=== PATIENT | female | born 1945 | race Caucasian/White ===

== ENCOUNTER 2019-12-15 11:10 | Emergency (ER) | payer MEDICARE, OTHER ==
--- NOTE | 2019-12-15 19:17 | RAD ---
RIGHT FOOT 3 VIEWS: Date: 12/15/2019 No acute fracture or dislocation seen. An old, healed fracture involving the distal fifth metatarsal and the proximal phalanx of the great toe are noted along with postsurgical changes here. There are s ome mild degenerative changes in many of the joints of the toes and foot. No bony destructive lesion seen. A calcaneal spur was present. IMPRESSION: Chronic changes, but no acute bony findings. POS: HOME
== END 2019-12-15 12:12 | disposition home or self-care (01) ==
LOC: BURERS 11:10
DX: S93.601A Unspecified sprain of right foot, initial encounter (principal); X50.1XXA Overexertion from prolonged static or awkward postures, initial encounter

== ENCOUNTER 2020-03-16 14:27 | Outpatient (CLI) | payer MEDICARE, OTHER ==
--- NOTE | 2020-03-16 15:49 | RAD ---
LEFT KNEE 03/16/20 Three projections demonstrate no fracture or joint effusion. There is some mild medial joint space na rrowing but not any significant osteophytes. No fracture or area of bony destruction was seen. IMPRESSION: Mild medial joint space narrowing. POS: HOME
== END 2020-03-16 14:28 | disposition home or self-care (01) ==
LOC: BURRAD 14:27
PROVIDERS: ATTEND Family Medicine
DX: M25.562 Pain in left knee (principal); M17.12 Unilateral primary osteoarthritis, left knee

== ENCOUNTER 2020-11-18 09:33 | Emergency (ER) | payer MEDICARE, OTHER ==
[2020-11-18 10:07] LABS: #Monocytes 0.9 thou/uL (0.11-0.59); #Neutrophils 4.8 thou/uL (1.40-6.50); %Basophils 0.5 % (0.0-1.0); %Eosinophils 0.2 % (0.0-10.0); %Monocytes 10.6 % (0.0-10.0); %Neutrophils 54.8 % (42.0-75.0); Mean Corpuscular Hemoglobin 30.3 pg (27.0-31.0); Mean Corpuscular Volume 94.6 fL (78.0-98.0); Mean Platelet Volume 7.1 fL (7.4-10.4); Platelet Count 225 thou/uL (130-400); RBC Distribution Width 12.2 % (11.5-14.5); Red Blood Cell (RBC) Count 4.61 mill/uL (4.20-5.40); White Blood Cell (WBC) Count 8.8 thou/uL (4.8-10.8)
[2020-11-18 10:16] LABS: ALT (SGPT) 47 U/L (8-55); AST (SGOT) 44 U/L (5-34); Albumin 4.1 g/dL (3.4-4.8); Alkaline Phosphatase 81 U/L (40-110); Anion Gap 16 mmol/L (10-20); BUN (Urea Nitrogen) 14 mg/dL (9.8-20.1); Bilirubin, Total 0.4 mg/dL (0.2-1.2); Calc. Creatinine Clearance 0 mL/min (70-130); Calcium 9.3 mg/dL (7.8-10.44); Carbon Dioxide 25 mmol/L (23-31); Chloride 96 mmol/L (98-107); Globulin 4.1 g/dL (2.4-3.5); Glucose 94 mg/dL (83-110); Potassium 4.4 mmol/L (3.5-5.1); Protein, Total 8.2 g/dL (5.8-8.1); Sodium 133 mmol/L (136-145)
== END 2020-11-18 11:35 | disposition home or self-care (01) ==
LOC: BURERS 09:33
DX: J06.9 Acute upper respiratory infection, unspecified (principal)
CPT/HCPCS: 36415; 71045; 80053; 83605; 85025; 87040; 94640; J7620

== ENCOUNTER 2020-11-23 11:12 | Inpatient (IN) | payer MEDICARE, OTHER ==
[2020-11-23 11:44] LABS: #Eosinphils 0.1 thou/uL (0.0-0.7); #Lymphocytes 2.1 thou/uL (1.20-3.40); #Monocytes 0.4 thou/uL (0.11-0.59); #Neutrophils 13.9 thou/uL (1.40-6.50); %Basophils 0.2 % (0.0-1.0); %Eosinophils 0.4 % (0.0-10.0); %Lymphocytes 12.9 % (21.0-51.0); %Monocytes 2.3 % (0.0-10.0); %Neutrophils 84.1 % (42.0-75.0); Hemoglobin 14.8 g/dL (12.0-16.0); Mean Corpuscular HGB CONC 32.9 g/dL (32.0-36.0); Mean Corpuscular Hemoglobin 30.5 pg (27.0-31.0); Mean Corpuscular Volume 92.7 fL (78.0-98.0); Mean Platelet Volume 6.6 fL (7.4-10.4); Platelet Count 234 thou/uL (130-400); RBC Distribution Width 12.3 % (11.5-14.5); Red Blood Cell (RBC) Count 4.84 mill/uL (4.20-5.40); White Blood Cell (WBC) Count 16.6 thou/uL (4.8-10.8)
[2020-11-23 12:06] LABS: ALT (SGPT) 33 U/L (8-55); AST (SGOT) 25 U/L (5-34); Alkaline Phosphatase 82 U/L (40-110); Anion Gap 14 mmol/L (10-20); BUN (Urea Nitrogen) 10 mg/dL (9.8-20.1); Calc. Creatinine Clearance 0 mL/min (70-130); Calcium 9.1 mg/dL (7.8-10.44); Carbon Dioxide 25 mmol/L (23-31); Chloride 96 mmol/L (98-107); Glucose 108 mg/dL (83-110); Potassium 4.3 mmol/L (3.5-5.1); Sodium 131 mmol/L (136-145)
[2020-11-23] MEDS ORDERED: cefTRIAXone\\ROCEPHIN 2 GM VIAL ONE (12:35)
[2020-11-23] MEDS ORDERED: methylPREDNISolone Sod Succ/PF 125 MG/2 ML VIAL ONE (12:35)
[2020-11-23] MEDS ORDERED: Sodium Chloride 0.9% 100 ML ONE (12:36)
[2020-11-23 14:37] LABS: SARS-CoV-2 NAA Rapid Test Not Detected (NotDetected)
[2020-11-23] MEDS ORDERED: HYDROcodone/Acetaminophen 5/325 mg Tablet PO PRN (15:19)
[2020-11-23] MEDS ORDERED: Dextrose 5 %-0.45 % NaCl 1,000 ML IV SCH (15:30)
[2020-11-23] MEDS ORDERED: Ondansetron ODT 4 MG TAB SL PRN (15:30)
[2020-11-23] MEDS ORDERED: Ondansetron PF 4 MG/2 ML Vial IVP PRN (15:30)
[2020-11-23] MEDS ORDERED: Azithromycin 500 MG in Sodium Chloride 0.9% 250 ML 250 ML IVPB SCH (15:30)
[2020-11-23] MEDS ORDERED: Acetaminophen 325 MG TAB PO PRN (15:30)
[2020-11-23 17:13] VITALS: BMI 29.0
[2020-11-23] MEDS: Sodium Chloride 0.9% 1,000 ML IV SCH (18:18)
[2020-11-23] MEDS: Simvastatin 5 MG TAB PO SCH (20:21)
[2020-11-23] MEDS: Carvedilol 6.25 MG TAB PO SCH (20:21)
[2020-11-23] MEDS: Apixaban 5 MG TAB PO SCH (20:22)
[2020-11-23] MEDS: Guaifenesin DM 100-10/5 ML UDCUP PO PRN (21:37)
[2020-11-24] MEDS: Guaifenesin DM 100-10/5 ML UDCUP PO PRN ×2 (05:55→11:10)
[2020-11-24] MEDS: Levothyroxine Sodium 50 MCG TAB PO SCH (05:59)
[2020-11-24] MEDS: Sodium Chloride 0.9% 1,000 ML IV SCH ×2 (08:33→21:04)
[2020-11-24 08:37] LABS: #Lymphocytes 1.5 thou/uL (1.20-3.40); #Monocytes 0.3 thou/uL (0.11-0.59); %Basophils 0.1 % (0.0-1.0); %Lymphocytes 7.7 % (21.0-51.0); %Monocytes 1.6 % (0.0-10.0); %Neutrophils 90.5 % (42.0-75.0); Hemoglobin 13.5 g/dL (12.0-16.0); Mean Corpuscular HGB CONC 32.3 g/dL (32.0-36.0); Mean Corpuscular Hemoglobin 30.7 pg (27.0-31.0); Mean Corpuscular Volume 95.2 fL (78.0-98.0); Mean Platelet Volume 6.7 fL (7.4-10.4); Platelet Count 202 thou/uL (130-400); RBC Distribution Width 12.7 % (11.5-14.5); Red Blood Cell (RBC) Count 4.39 mill/uL (4.20-5.40); White Blood Cell (WBC) Count 19.9 thou/uL (4.8-10.8)
[2020-11-24] MEDS: Digoxin 0.25 MG TAB PO SCH (08:37)
[2020-11-24] MEDS: metFORMIN 500 MG TAB PO SCH (08:38)
[2020-11-24] MEDS: Cholecalciferol 1,000 UNITS (25 MCG) TAB PO SCH (08:38)
[2020-11-24] MEDS: Hydrochlorothiazide 25 MG TAB PO SCH (08:38)
[2020-11-24] MEDS: Apixaban 5 MG TAB PO SCH ×2 (08:39→21:03)
[2020-11-24] MEDS: Losartan Potassium 50 MG TAB PO SCH (08:39)
[2020-11-24] MEDS: Azithromycin 250 MG TAB PO SCH (08:39)
[2020-11-24] MEDS: Carvedilol 6.25 MG TAB PO SCH ×2 (08:40→21:03)
[2020-11-24] MEDS: Flaxseed/Omega3,6,9/Fatty Acid [Flax Seed Oil 1,300 Mg Softgel] PO SCH (08:41)
[2020-11-24 08:51] LABS: Anion Gap 14 mmol/L (10-20); BUN (Urea Nitrogen) 11 mg/dL (9.8-20.1); Calc. Creatinine Clearance 99 mL/min (70-130); Calcium 8.8 mg/dL (7.8-10.44); Carbon Dioxide 25 mmol/L (23-31); Chloride 100 mmol/L (98-107); Glucose 147 mg/dL (83-110); Potassium 3.7 mmol/L (3.5-5.1); Sodium 135 mmol/L (136-145)
[2020-11-24] MEDS: cefTRIAXone\\ROCEPHIN 1 GM in Sodium Chloride 0.9% 100 ML IVPB SCH (12:23)
[2020-11-24] MEDS: Benzonatate 100 MG CAP PO PRN ×2 (15:01→23:54)
[2020-11-24] MEDS: Simvastatin 5 MG TAB PO SCH (21:03)
[2020-11-25 05:32] LABS: #Lymphocytes 2.4 thou/uL (1.20-3.40); #Monocytes 0.8 thou/uL (0.11-0.59); #Neutrophils 12.8 thou/uL (1.40-6.50); %Basophils 0.2 % (0.0-1.0); %Eosinophils 0.2 % (0.0-10.0); %Lymphocytes 15.1 % (21.0-51.0); %Monocytes 4.8 % (0.0-10.0); %Neutrophils 79.8 % (42.0-75.0); Hemoglobin 13.4 g/dL (12.0-16.0); Mean Corpuscular HGB CONC 32.3 g/dL (32.0-36.0); Mean Corpuscular Hemoglobin 30.4 pg (27.0-31.0); Mean Corpuscular Volume 94.2 fL (78.0-98.0); Platelet Count 178 thou/uL (130-400); RBC Distribution Width 12.6 % (11.5-14.5)
[2020-11-25] MEDS: Levothyroxine Sodium 50 MCG TAB PO SCH (05:41)
[2020-11-25 05:42] LABS: Anion Gap 12 mmol/L (10-20); BUN (Urea Nitrogen) 11 mg/dL (9.8-20.1); Calc. Creatinine Clearance 105 mL/min (70-130); Calcium 8.6 mg/dL (7.8-10.44); Carbon Dioxide 25 mmol/L (23-31); Chloride 105 mmol/L (98-107); Glucose 96 mg/dL (83-110); Potassium 3.9 mmol/L (3.5-5.1); Sodium 138 mmol/L (136-145)
[2020-11-25 06:23] VITALS: TEMP 97.7
[2020-11-25] MEDS ORDERED: Promethazine HCl 6.25 MG/5 ML Syrup PO PRN (07:20)
[2020-11-25] MEDS: Hydrochlorothiazide 25 MG TAB PO SCH (09:16)
[2020-11-25] MEDS: Azithromycin 250 MG TAB PO SCH (09:17)
[2020-11-25] MEDS: Cholecalciferol 1,000 UNITS (25 MCG) TAB PO SCH (09:17)
[2020-11-25] MEDS: Apixaban 5 MG TAB PO SCH (09:17)
[2020-11-25] MEDS: metFORMIN 500 MG TAB PO SCH (09:17)
[2020-11-25] MEDS: Digoxin 0.25 MG TAB PO SCH (09:18)
[2020-11-25] MEDS: Losartan Potassium 50 MG TAB PO SCH (09:19)
[2020-11-25] MEDS: Carvedilol 6.25 MG TAB PO SCH (09:19)
[2020-11-25] MEDS: Flaxseed/Omega3,6,9/Fatty Acid [Flax Seed Oil 1,300 Mg Softgel] PO SCH (09:20)
[2020-11-25 09:21] VITALS: BP 120/80
[2020-11-25] MEDS: cefTRIAXone\\ROCEPHIN 1 GM in Sodium Chloride 0.9% 100 ML IVPB SCH (11:09)
[2020-11-25] MEDS: Benzonatate 100 MG CAP PO PRN (11:16)
[2020-11-26] MEDS ORDERED: Cefdinir 300 MG CAP PO SCH (09:00)
== END 2020-11-25 14:15 | disposition home or self-care (01) | DRG 203 ==
LOC: BURERS 11:12 → BURMED 13:30
PROVIDERS: ADMIT Family Medicine; ATTEND Family Medicine
DX: J21.0 Acute bronchiolitis due to respiratory syncytial virus (principal); I10 Essential (primary) hypertension; E11.9 Type 2 diabetes mellitus without complications; J06.9 Acute upper respiratory infection, unspecified; Z20.822 Contact with and (suspected) exposure to COVID-19; Z85.3 Personal history of malignant neoplasm of breast; Z92.21 Personal history of antineoplastic chemotherapy; Z92.3 Personal history of irradiation; Z91.041 Radiographic dye allergy status; Z79.01 Long term (current) use of anticoagulants; Z79.84 Long term (current) use of oral hypoglycemic drugs; Z79.899 Other long term (current) drug therapy
CPT/HCPCS: 0240U; 36415; 71045; 80048; 80053; 83605; 83880; 84484; 85025; 87807; 94640; J0456; J0696; J2930; J3490; J7050; J7620

== ENCOUNTER 2021-07-06 16:26 | Outpatient (CLI) | payer MEDICARE, OTHER | END 2021-07-06 16:27 | disposition home or self-care (01) | LOC: BURRAD 16:26 | PROVIDERS: ATTEND Family Medicine | DX: R60.0 Localized edema (principal) ==

== ENCOUNTER 2022-01-29 18:02 | Emergency (ER) | payer MEDICARE, OTHER | END 2022-01-29 18:24 | disposition home or self-care (01) | LOC: BURERS 18:02 | DX: R42 Dizziness and giddiness (principal); E11.9 Type 2 diabetes mellitus without complications; K21.9 Gastro-esophageal reflux disease without esophagitis; I10 Essential (primary) hypertension; I48.91 Unspecified atrial fibrillation | CPT/HCPCS: 99283 ==

== ENCOUNTER 2022-02-06 16:26 | Outpatient (CLI) | payer MEDICARE, OTHER | END 2022-02-06 16:27 | disposition home or self-care (01) | LOC: BURRAD 16:26 | PROVIDERS: ATTEND Internal Medicine Rheumatology | DX: M25.551 Pain in right hip (principal); M25.552 Pain in left hip; M25.571 Pain in right ankle and joints of right foot; M25.561 Pain in right knee; M19.072 Primary osteoarthritis, left ankle and foot | CPT/HCPCS: 72170 ==

== ENCOUNTER 2023-03-01 09:46 | Outpatient (CLI) | payer MEDICARE, OTHER | END 2023-03-01 09:47 | disposition home or self-care (01) | LOC: BURRAD 09:46 | PROVIDERS: ATTEND Family Medicine | DX: S30.0XXA Contusion of lower back and pelvis, initial encounter (principal) | CPT/HCPCS: 72220 ==